=== PATIENT | female | born 1970 | race Caucasian/White ===

== ENCOUNTER 2017-01-27 05:43 | Day surgery (SDC) | payer OTHER ==
[~2017-01-27] VITALS: Ht 170.2 cm; Wt 65.8 kg
[~2017-01-27 05:43] MED LIST: ALEVE220 MG PO; ASACOL HD800 MG PO; MOTRIN800 MG PO; PREVACID30 MG PO; WELLBUTRIN SR150 MG PO; WELLBUTRIN75 MG PO
[2017-01-27 06:43] VITALS: BP 120/85
[2017-01-27 11:09] VITALS: BP 127/90
[2017-01-27 12:14] VITALS: BP 126/86
== END 2017-01-27 12:40 | disposition home or self-care (01) ==
LOC: SDC 05:43 → 2SOUTH 14:09 → EDSTATUS 14:09 → SDC 14:10
DX: M20.12 Hallux valgus (acquired), left foot (principal); M20.42 Other hammer toe(s) (acquired), left foot; M71.372 Other bursal cyst, left ankle and foot; K21.9 Gastro-esophageal reflux disease without esophagitis; Z88.2 Allergy status to sulfonamides; F41.9 Anxiety disorder, unspecified; Z86.718 Personal history of other venous thrombosis and embolism
CPT/HCPCS: 88304; C1713; C1769; J0690; J1100; J1170; J1885; J2250; J2405; J3010; S0020

== ENCOUNTER → 2017-03-04 | Outpatient (CLI) | payer OTHER | END | disposition home or self-care (01) | LOC: NUC 10:44 | DX: R93.7 Abnormal findings on diagnostic imaging of other parts of musculoskeletal system (principal) | CPT/HCPCS: 78306; A9503 ==